=== PATIENT | female | born 1980 | race Caucasian/White ===

== ENCOUNTER 2023-09-29 10:48 | Emergency (ER) | payer OTHER ==
[2023-09-29 11:18] VITALS: BP 116/75; PULSE 84; RESP 16; TEMP 98.8; BMI 27.8
[2023-09-29] MEDS ORDERED: IBUPROFEN 600 MG TABLET (FP) PO ONE (11:30)
[2023-09-29] MEDS: IBUPROFEN 600 MG TABLET (FP) PO ONE (11:48)
== END 2023-09-29 12:44 | disposition home or self-care (01) ==
LOC: FER 10:48
DX: S63.502A Unspecified sprain of left wrist, initial encounter (principal); S80.212A Abrasion, left knee, initial encounter; R42 Dizziness and giddiness; M25.512 Pain in left shoulder; M54.6 Pain in thoracic spine; M25.552 Pain in left hip; W18.39XA Other fall on same level, initial encounter
CPT/HCPCS: 72070-TC-FY; 73030-TC-LT-FY; 73110-TC-LT-FY; 93005; 99284-25